=== PATIENT | female | born 1975 | race Caucasian/White ===

== ENCOUNTER 2021-04-23 08:04 | Outpatient (CLI) | payer MEDICARE | END 2021-04-23 23:59 | disposition home or self-care (01) | LOC: ROC 08:04 | PROVIDERS: ATTEND Radiology Radiation Oncology | DX: C50.412 Malignant neoplasm of upper-outer quadrant of left female breast (principal) | CPT/HCPCS: 99214; G0463 ==

== ENCOUNTER → 2021-05-20 | Outpatient (CLI) | payer MEDICARE ==
[~2021-05-20] MED LIST: GADOTERATE 7.5 MMOL/15ML SYR ONE; TRAM50TA2 PO
== END | disposition home or self-care (01) ==
LOC: RAD 13:11
PROVIDERS: ATTEND Radiology Radiation Oncology
DX: C50.412 Malignant neoplasm of upper-outer quadrant of left female breast (principal); M54.2 Cervicalgia
CPT/HCPCS: 70543; A9575

== ENCOUNTER 2021-06-14 08:18 | Outpatient (CLI) | payer MEDICAID, MEDICARE ==
[~2021-06-14 08:18] MED LIST changes: -GADOTERATE 7.5 MMOL/15ML SYR ONE
== END 2021-06-14 23:59 | disposition home or self-care (01) ==
LOC: ROC 08:18
PROVIDERS: ATTEND Radiology Radiation Oncology
DX: C50.412 Malignant neoplasm of upper-outer quadrant of left female breast (principal); E03.2 Hypothyroidism due to medicaments and other exogenous substances; Z17.1 Estrogen receptor negative status [ER-]
CPT/HCPCS: G0463